=== PATIENT | female | born 1965 | race African-American/Black ===

== ENCOUNTER 2016-12-04 14:15 | Emergency (ER) | payer OTHER ==
[2016-12-04 14:34] VITALS: BP 137/91; PULSE 98; TEMP 97.8; BMI 40.2
--- NOTE | 2016-12-08 16:26 | EKG ---
Test Reason : Blood Pressure : / mmHG Vent. Rate : 100 BPM Atrial Rate : 100 BPM P-R Int : 168 ms QRS Dur : 090 ms QT Int : 336 ms P-R-T Axes : 050 -25 032 degrees QTc Int : 433 ms NORMAL SINUS RHYTHM MINIMAL VOLTAGE CRITERIA FOR LVH, MAY BE NORMAL VARIANT BORDERLINE ECG WHEN COMPARED WITH ECG OF 07-APR-2016 19:28, LIKELY NO SIGNIFICANT CHANGES WERE SEEN Confirmed by KAVON DAMICO, MIKEY ([id number]) on 12/08/2016 4:25:41 PM Referred By: Confirmed By:MIKEY JACOBSON MD
== END 2016-12-04 16:20 | disposition left against medical advice (07) ==
LOC: JER 14:15
DX: Z53.21 Procedure and treatment not carried out due to patient leaving prior to being seen by health care provider (principal)
CPT/HCPCS: 93005; 93010; 99282-25

== ENCOUNTER 2016-12-19 12:06 | Emergency (ER) | payer OTHER ==
[2016-12-19 12:10] VITALS: TEMP 98; BMI 43.0
--- NOTE | 2016-12-19 12:28 | PDOC ---
History of Present Illness - General History Source: Patient, Old Records Exam Limitations: No Limitations - History of Present Illness Initial Comments: 12/19/16 14:17 The patient is a 51 year old female, with a significant past medical history of asthma, hypertension, diabetes and anxiety/panic attacks, who presents to the emergency department with intermittent chest pain for the past couple of months but worsening today. The patient reports that she has seen her primary care provider for these symptoms. From there, she was referred to cardiology and reports a negative cardiac workup. However, her symptoms persist so she presents to the ED today for evaluation. The patient Currently in the ED, the patient is in no pain. The patient denies diaphoresis or shortness of breath. The patient denies fever, chills, cough, nausea or vomiting. The patient denies any trauma. Allergies: None reported. Past Surgical History: None reported. Social History: Non smoker. Denies alcohol or drug use. PCP: MISTY Holbrook <Vikki Anguiano - Last Filed: 12/19/16 14:17> <Ian Jean Baptiste - Last Filed: 12/19/16 15:57> - General Chief Complaint: Chest Pain Stated Complaint: CHEST PAIN Time Seen by Provider: 12/19/16 12:27 Past History <Vikki Anguiano - Last Filed: 12/19/16 14:17> - Past Medical History Asthma: Yes Cancer: No Cardiac Disorders: No CHF: No Diabetes: Yes HTN: Yes Liver Disease: No Psychiatric Problems: Yes (anxiety) Seizures: No Thyroid Disease: No - Psycho/Social/Smoking Cessation Hx Anxiety: Yes (PANIC ATTACKS) Suicidal Ideation: No Smoking Status: No Smoking History: Never smoked Have you smoked in the past 12 months: No Number of Cigarettes Smoked Daily: 0 Information on smoking cessation initiated: No Hx Alcohol Use: No Drug/Substance Use Hx: No Substance Use Type: None Hx Substance Use Treatment: No <Ian Jean Baptiste - Last Filed: 12/19/16 15:57> - Past Medical History Allergies/Adverse Reactions: Allergies Allergy/AdvReac Type Severity Reaction Status Date / Time No Known Allergies Allergy Verified 12/19/16 12:07 Home Medications: Ambulatory Orders Albuterol Sulfate [Proventil HFA Inhaler -] 1 - 2 inh PO QID 12/19/16 Aspirin [ASA -] 81 mg PO DAILY 12/19/16 Cholecalciferol (Vitamin D3) [Vitamin D3 -] 400 unit PO WEEKLY 12/19/16 Cyclobenzaprine HCl [Flexeril 10 mg] 10 mg PO BID PRN 12/19/16 Cyclobenzaprine HCl [Flexeril 10 mg] 10 mg PO TID #30 tablet 12/19/16 Ibuprofen 800 mg PO TID #30 tablet 12/19/16 Ibuprofen [Motrin -] 400 mg PO QID 12/19/16 Metformin HCl [Glucophage -] 500 mg PO DAILY 12/19/16 Oxycodone HCl/Acetaminophen [Percocet 10-325 mg Tablet] 1 each PO Q6H PRN Review of Systems - Review of Systems Able to Perform ROS?: Yes Comments:: 12/19/16 14:12 GENERAL/CONSTITUTIONAL: No fever or chills. No weakness. HEAD, EYES, EARS, NOSE AND THROAT: No change in vision. No ear pain or discharge. No sore throat. CARDIOVASCULAR: +Chest pain. No shortness of breath. RESPIRATORY: No cough, wheezing, or hemoptysis. GASTROINTESTINAL: No nausea, vomiting, diarrhea or constipation. GENITOURINARY: No dysuria, frequency, or change in urination. MUSCULOSKELETAL: No joint or muscle swelling or pain. No neck or back pain. SKIN: No rash. NEUROLOGIC: No headache, vertigo, loss of consciousness, or change in strength/ sensation. ENDOCRINE: No increased thirst. No abnormal weight change. HEMATOLOGIC/LYMPHATIC: No anemia, easy bleeding, or history of blood clots. ALLERGIC/IMMUNOLOGIC: No hives or skin allergy. <Vikki Anguiano - Last Filed: 12/19/16 14:17> *Physical Exam - Vital Signs Last Vital Signs Temp Pulse Resp BP Pulse Ox 98.0 F 90 18 148/96 100 12/19/16 12:07 12/19/16 12:07 12/19/16 12:07 12/19/16 12:07 12/19/16 12:07 - Physical Exam Comments: 12/19/16 14:07 GENERAL: Awake, alert, and fully oriented, in no acute distress. HEAD: No signs of trauma. EYES: PERRLA, EOMI, sclera anicteric, conjunctiva clear. ENT: Auricles normal inspection, hearing grossly normal, nares patent, oropharynx clear without exudates. Moist mucosa. NECK: Normal ROM, supple, no lymphadenopathy, JVD, or masses. CHEST: Reproducible chest tenderness to palpation. LUNGS: Breath sounds equal, clear to auscultation bilaterally. No wheezes, and no crackles. HEART: Regular rate and rhythm, normal S1 and S2, no murmurs, rubs or gallops. ABDOMEN: Soft, nontender, normoactive bowel sounds. No guarding, no rebound. No masses. EXTREMITIES: Normal range of motion, no edema. No clubbing or cyanosis. No cords , erythema, or tenderness. NEUROLOGICAL: Cranial nerves II through XII intact. Normal speech, normal gait. SKIN: Warm, dry, normal turgor, no rashes or lesions noted. <Vikki Anguiano - Last Filed: 12/19/16 14:17> - Vital Signs Last Vital Signs Temp Pulse Resp BP Pulse Ox 98.0 F 90 18 148/96 100 12/19/16 12:07 12/19/16 12:07 12/19/16 12:07 12/19/16 12:07 12/19/16 12:07 <Ian Jean Baptiste - Last Filed: 12/19/16 15:57> ED Treatment Course - LABORATORY CBC & Chemistry Diagram: 12/19/16 12:51 12/19/16 12:51 <Vikki Anguiano - Last Filed: 12/19/16 14:17> - LABORATORY CBC & Chemistry Diagram: 12/19/16 12:51 12/19/16 12:51 <Ian Jean Baptiste - Last Filed: 12/19/16 15:57> Medical Decision Making - Medical Decision Making 12/19/16 13:43 EXAM: RAD/CHEST PA & LAT Reviewed By: Dr. Hernesto King IMPRESSION: No evidence of active pulmonary disease. <Vikki Anguiano - Last Filed: 12/19/16 14:17> *DC/Admit/Observation/Transfer - Attestations Scribe Attestion: 12/19/16 12:28 Documentation prepared by Vikki Anguiano, acting as medical clinic manager for Ian Jean Baptiste MD/. <Vikki Anguiano - Last Filed: 12/19/16 14:17> - Discharge Dispostion Admit: No - Attestations Physician Attestion: 12/19/16 12:27 I, Dr. Ian Jean Baptiste, attest that this document has been prepared under my direction and personally reviewed by me in its entirety. I further attest, that it accurately reflects all work, treatment, procedures and medical decision -making performed by me. <Ian Jean Baptiste - Last Filed: 12/19/16 15:57> Diagnosis at time of Disposition: Chest pain, Chest wall pain - Discharge Dispostion Disposition: HOME Condition at time of disposition: Good - Prescriptions Prescriptions: Cyclobenzaprine HCl [Flexeril 10 mg] 10 mg PO TID #30 tablet Ibuprofen 800 mg PO TID #30 tablet - Referrals Referrals: Maxi Holbrook PA [Primary Care Provider] - - Patient Instructions Printed Discharge Instructions: DI for Atypical Chest Pain Additional Instructions: This is definitely chest wall tenderness and pain. You do not have a blood clot. Amilcar is probably best- Follow up with your primary care doctor. Best- Dr. Ian Jean Baptiste
[2016-12-19 13:07] LABS: BASOPHIL 0.4 % (0-2.0); EOSINOPHIL 0.7 % (0-4.5); MCH 26.4 pg (25.7-33.7); MCHC 32.2 g/dl (32.0-36.0); MEAN CELL VOLUME 82.2 fl (80-96); MEAN PLT VOLUME 8.9 fl (7.5-11.1); NEUTROPHILS 68.4 % (42.8-82.8); PLATELET COUNT 307 K/MM3 (134-434); RDW 15.9 % (11.6-15.6); WHITE BLOOD COUNT 8.3 K/mm3 (4.0-10.0)
[2016-12-19 13:27] LABS: ALBUMIN 3.3 g/dl (3.4-5.0); ANION GAP 6 (8-16); BILIRUBIN,TOTAL 0.5 mg/dL (0.2-1.0); CALCIUM 8.7 mg/dL (8.5-10.1); CO2 32 mmol/L (21-32); CREATININE 0.8 mg/dL (0.55-1.02); GLUCOSE,RANDOM 102 mg/dL (74-106); MAGNESIUM 1.9 mg/dL (1.8-2.4); SGOT/AST 13 U/L (15-37); SGPT/ALT 19 U/L (12-78)
[2016-12-19 13:29] LABS: ALK PHOS 85 U/L (45-117); TROPONIN I < 0.02 ng/ml (0.00-0.05)
[2016-12-19 15:04] LABS: INR 1.08 (0.82-1.09); PROTHROMBIN TIME (PATIENT) 11.9 SEC (9.98-11.88)
--- NOTE | 2016-12-19 15:14 | EKG ---
Test Reason : Blood Pressure : / mmHG Vent. Rate : 085 BPM Atrial Rate : 085 BPM P-R Int : 164 ms QRS Dur : 092 ms QT Int : 346 ms P-R-T Axes : 067 -20 033 degrees QTc Int : 411 ms NORMAL SINUS RHYTHM NON-SPECIFIC INTRA-VENTRICULAR CONDUCTION DELAY WHEN COMPARED WITH ECG OF 04-DEC-2016 14:24, NO SIGNIFICANT CHANGE WAS FOUND Confirmed by ELMA EDWARDS MD ([id number]) on 12/19/2016 3:14:03 PM Referred By: Confirmed By:ELMA EDWARDS MD
[2016-12-19 16:30] VITALS: BP 131/89; PULSE 80
== END 2016-12-19 16:31 | disposition home or self-care (01) ==
LOC: JER 12:06
DX: R07.89 Other chest pain (principal); I10 Essential (primary) hypertension; E11.9 Type 2 diabetes mellitus without complications; Z79.84 Long term (current) use of oral hypoglycemic drugs; J45.909 Unspecified asthma, uncomplicated; F41.0 Panic disorder [episodic paroxysmal anxiety]
CPT/HCPCS: 36415; 71020-TC; 80053; 82550; 83735; 84484; 85025; 85379; 85610; 93005; 93010; 99282-25

== ENCOUNTER 2017-06-09 17:40 | Emergency (ER) | payer OTHER ==
[2017-06-09 17:46] VITALS: BP 159/83; PULSE 106; TEMP 98.1; BMI 38.9
--- NOTE | 2017-06-09 19:51 | PDOC ---
History of Present Illness - History of Present Illness Initial Comments: 06/09/17 20:01 The patient is a 51 year old female, with a significant past medical history of asthma, hypertension, diabetes and anxiety/panic attacks, who presents to the emergency department with non radiating left sided chest pain with reproducible tenderness since 3PM today. The patient states she experiences this pain often and has been seen in the ED for similar complaint which was diagnosed as chest wall pain. The last time she had this pain was at 2pm today. The patient denies alleviating or aggravating factors to her chest pain, and describes the pain as intermittent and tight. The patient resports this pain is identical to her previous chest pain and just wants to know if her EKG is normal so that she can leave. She had a normal stress test by report a few months ago by Dr. Mgcowan. Denies trauma or recent heavy lifting. She denies shortness of breath, headache and dizziness. She denies fever, chills , nausea, vomit, diarrhea and constipation. She denies dysuria, frequency, urgency and hematuria. Allergies: NKDA Social history: Pt denies toxic habits [employer]ane Crew Supervisor: Dr. Mcgowan <Love Hanson - Last Filed: 06/09/17 22:26> <Yvette Amaral - Last Filed: 06/10/17 17:30> - General Chief Complaint: Chest Pain Stated Complaint: CHEST PAIN Time Seen by Provider: 06/09/17 19:49 Past History <Love Hanson - Last Filed: 06/09/17 22:26> - Past Medical History Asthma: Yes Cancer: No Cardiac Disorders: No CHF: No Diabetes: Yes HTN: Yes Liver Disease: No Psychiatric Problems: Yes (anxiety) Seizures: No Thyroid Disease: No - Psycho/Social/Smoking Cessation Hx Anxiety: Yes (PANIC ATTACKS) Suicidal Ideation: No Smoking Status: No Smoking History: Never smoked Have you smoked in the past 12 months: No Number of Cigarettes Smoked Daily: 0 Information on smoking cessation initiated: No Hx Alcohol Use: No Drug/Substance Use Hx: No Substance Use Type: None Hx Substance Use Treatment: No <Yvette Amaral - Last Filed: 06/10/17 17:30> - Past Medical History Allergies/Adverse Reactions: Allergies Allergy/AdvReac Type Severity Reaction Status Date / Time No Known Allergies Allergy Verified 06/09/17 17:42 Home Medications: Ambulatory Orders Albuterol Sulfate [Proventil HFA Inhaler -] 1 - 2 inh PO QID 12/19/16 Aspirin [ASA -] 81 mg PO DAILY 12/19/16 Cholecalciferol (Vitamin D3) [Vitamin D3 -] 400 unit PO WEEKLY 12/19/16 Cyclobenzaprine HCl [Flexeril 10 mg] 10 mg PO BID PRN 12/19/16 Cyclobenzaprine HCl [Flexeril 10 mg] 10 mg PO TID #30 tablet 12/19/16 Ibuprofen 800 mg PO TID #30 tablet 12/19/16 Ibuprofen [Motrin -] 400 mg PO QID 12/19/16 Metformin HCl [Glucophage -] 500 mg PO DAILY 12/19/16 Oxycodone HCl/Acetaminophen [Percocet 10-325 mg Tablet] 1 each PO Q6H PRN Review of Systems - Review of Systems Able to Perform ROS?: Yes Comments:: 06/09/17 20:01 GENERAL/CONSTITUTIONAL: No fever or chills. No weakness. HEAD, EYES, EARS, NOSE AND THROAT: No change in vision. No ear pain or discharge. No sore throat. CARDIOVASCULAR: (+) left sided chest pain, No shortness of breath. RESPIRATORY: No cough, wheezing, or hemoptysis. GASTROINTESTINAL: No nausea, vomiting, diarrhea or constipation. GENITOURINARY: No dysuria, frequency, or change in urination. MUSCULOSKELETAL: No joint or muscle swelling or pain. No neck or back pain. SKIN: No rash NEUROLOGIC: No headache, vertigo, loss of consciousness, or change in strength/ sensation. ENDOCRINE: No increased thirst. No abnormal weight change. HEMATOLOGIC/LYMPHATIC: No anemia, easy bleeding, or history of blood clots. ALLERGIC/IMMUNOLOGIC: No hives or skin allergy. <Love Hanson - Last Filed: 06/09/17 22:26> *Physical Exam - Vital Signs Last Vital Signs Temp Pulse Resp BP Pulse Ox 98.1 F 106 H 18 159/83 100 06/09/17 17:43 06/09/17 17:43 06/09/17 17:43 06/09/17 17:43 06/09/17 17:43 - Physical Exam Comments: 06/09/17 20:02 GENERAL: Awake, alert, and fully oriented, in no acute distress HEAD: No signs of trauma EYES: PERRLA, EOMI, sclera anicteric, conjunctiva clear ENT: Auricles normal inspection, hearing grossly normal, nares patent, oropharynx clear without exudates. Moist mucosa NECK: Normal ROM, supple, no lymphadenopathy, JVD, or masses LUNGS: Breath sounds equal, clear to auscultation bilaterally. No wheezes, and no crackles HEART Regular rate and rhythm, normal S1 and S2, no murmurs, rubs or gallops ABDOMEN: Soft, nontender, normoactive bowel sounds. No guarding, no rebound. No masses MUSCULOSKELETAL: (+) reproducible tenderness to palpation to the left anterior chest wall EXTREMITIES: Normal range of motion, no edema. No clubbing or cyanosis. No cords, erythema, or tenderness NEUROLOGICAL: Normal speech, cranial nerves intact, negative pronator drift, 5/ 5 strength in all 4 extremities, normal sensation to light touch in all 4 extremities, normal cerebellar exam, normal gait, normal reflexes and tone SKIN: Warm, Dry, normal turgor, no rashes or lesions noted. <Love Hanson - Last Filed: 06/09/17 22:26> - Vital Signs Last Vital Signs Temp Pulse Resp BP Pulse Ox 98.1 F 106 H 18 159/83 100 06/09/17 17:43 06/09/17 17:43 06/09/17 17:43 06/09/17 17:43 06/09/17 17:43 <Yvette Amaral - Last Filed: 06/10/17 17:30> Medical Decision Making - Medical Decision Making 06/09/17 20:08 52-year-old female with a history of hypertension, [id number] diabetes, and recurrent chest pain presents with chest pain. Patient self reports that the pain is reproducible when she touches however denies any trauma or recent heavy lifting. She has not tried any treatments for this pain. Exam and EKG are unremarkable. Likely costochondritis but given risk factors for ACS, I will check a troponin. -labs -cxr -reassess Twelve-lead EKG was performed and reviewed by me: Sinus tachycardia, rate of 102 , normal axis and intervals, no ST elevations or T-wave inversions. 06/09/17 20:13 The nurse informs me that the patient would like to leave. When I speak with the pt, she reports that she came to the emergency department just to make sure that her EKG was normal. I urged the patient to stay so that we can fully evaluate her, including to check a troponin to evaluate for ACS. I asked the nurse to draw her labs now so that we can have her troponin MICK. 06/09/17 21:41 I am informed that Ms. Sky eloped from the ED. I called her number at multiple times to try to reach her to come back for an evaluation but the call went to voicemail. <Yvette Amaral - Last Filed: 06/10/17 17:30> *DC/Admit/Observation/Transfer - Attestations Scribe Attestion: 06/09/17 20:02 Documentation prepared by Love Hanson, acting as medical van driver for Yvette Amaral MD, <Love Hanson - Last Filed: 06/09/17 22:26> <Yvette Amaral - Last Filed: 06/10/17 17:30> Diagnosis at time of Disposition: Eloped - Discharge Dispostion Disposition: ELP
== END 2017-06-09 20:47 | disposition left against medical advice (07) ==
LOC: JER 17:40
DX: R07.89 Other chest pain (principal); I10 Essential (primary) hypertension; E11.9 Type 2 diabetes mellitus without complications; Z79.84 Long term (current) use of oral hypoglycemic drugs; Z86.59 Personal history of other mental and behavioral disorders
CPT/HCPCS: 99281-25

== ENCOUNTER 2017-06-10 18:30 | Emergency (ER) | payer OTHER ==
[2017-06-10 18:43] VITALS: BP 149/77; PULSE 99; TEMP 98.2; BMI 39.3
--- NOTE | 2017-06-10 20:38 | PDOC ---
History of Present Illness - General History Source: Patient Exam Limitations: No Limitations <Duy Maguire - Last Filed: 06/11/17 01:45> <Sandoval Booth - Last Filed: 06/11/17 02:14> - General Chief Complaint: Chest Pain Stated Complaint: CHEST PAIN Time Seen by Provider: 06/10/17 20:38 - History of Present Illness Initial Comments: 06/10/17 22:04 The patient is a 52 year old female, with a significant past medical history of hypertension, prediabetes, asthma, and anxiety, who presents to the emergency department complaining of chest pain for over one year. The patient reports the pain is intermittent and describes it as a pressure. Patient reports her pain occasionally radiates down her left arm and into her left upper back. Patient reports the pain is exacerbated with movement or with applied pressure to the left chest wall. Patient reports she has been taken 800 mg of tylenol for the pain with no relief. She denies any associated shortness of breath, diaphoresis , palpitations, or lower extremity edema. Patient reports her chest pain is alleviated with a toradol injection. Patient states she has seen her travel pt Dr. Powers, who has done an ECHO and a stress test, which were negative. Patient states the providers she has seen associate her pain to chest wall pain or enlarged breasts. Patient denies any fever or chills. She denies any abdominal pain, nausea, vomiting, diarrhea, or constipation. She denies any recent travel or sick contacts. Allergies: NKDA Past Surgical History: None reported. Social History: Non smoker. No ETOH or drug use. Physician: Dr. Mcgowan (Duy Maguire) Past History <Duy Maguire - Last Filed: 06/11/17 01:45> - Past Medical History Asthma: Yes Cancer: No Cardiac Disorders: No CHF: No Diabetes: Yes HTN: Yes Liver Disease: No Psychiatric Problems: Yes (anxiety) Seizures: No Thyroid Disease: No - Psycho/Social/Smoking Cessation Hx Anxiety: No Suicidal Ideation: No Smoking Status: No Smoking History: Never smoked Have you smoked in the past 12 months: No Number of Cigarettes Smoked Daily: 0 Hx Alcohol Use: No Drug/Substance Use Hx: No Substance Use Type: None Hx Substance Use Treatment: No <Sandoval Booth - Last Filed: 06/11/17 02:14> - Past Medical History Allergies/Adverse Reactions: Allergies Allergy/AdvReac Type Severity Reaction Status Date / Time No Known Allergies Allergy Verified 06/10/17 18:43 Home Medications: Ambulatory Orders Albuterol Sulfate [Proventil HFA Inhaler -] 1 - 2 inh PO QID 12/19/16 Aspirin [ASA -] 81 mg PO DAILY 12/19/16 Cholecalciferol (Vitamin D3) [Vitamin D3 -] 400 unit PO WEEKLY 12/19/16 Cyclobenzaprine HCl [Flexeril 10 mg] 10 mg PO BID PRN 12/19/16 Ibuprofen 800 mg PO TID #30 tablet 12/19/16 Ibuprofen [Motrin -] 400 mg PO QID 12/19/16 Metformin HCl [Glucophage -] 500 mg PO DAILY 12/19/16 Oxycodone HCl/Acetaminophen [Percocet 10-325 mg Tablet] 1 each PO Q6H PRN Review of Systems - Review of Systems Able to Perform ROS?: Yes <Duy Maguire - Last Filed: 06/11/17 01:45> <Sandoval Booth - Last Filed: 06/11/17 02:14> - Review of Systems Comments:: 06/10/17 22:06 CONSTITUTIONAL: No fever, no chills, no fatigue EYES: No visual changes ENT: No ear pain, no sore throat CARDIOVASCULAR: Yes: +chest pain. No diaphoresis, no palpitations RESPIRATORY: No cough, no SOB GI: No abdominal pain, no nausea, no vomiting, no constipation, no diarrhea GENITOURINARY: No dysuria, no frequency, no hematuria MUSKULOSKELETAL: No back pain, no joint pain, no myalgias SKIN: No rash NEURO: No headache (Duy Maguire) *Physical Exam <Duy Maguire - Last Filed: 06/11/17 01:45> <Sandoval Booth - Last Filed: 06/11/17 02:14> - Vital Signs Last Vital Signs Temp Pulse Resp BP Pulse Ox 98.2 F 99 H 20 149/77 100 06/10/17 18:37 06/10/17 18:37 06/10/17 18:37 06/10/17 18:37 06/10/17 20:25 - Physical Exam Comments: 06/10/17 22:06 CONSTITUTIONAL: Well-appearing; well-nourished; in no apparent distress HEAD: Normocephalic; atraumatic EYES: PERRL; EOM intact ENMT: External appears normal; normal oropharynx NECK: Supple; non-tender; no cervical lymphadenopathy CARD: Tenderness to palpation of the chest wall. Normal S1, S2; no murmurs, rubs , or gallops RESP: Normal chest excursion with respiration; breath sounds clear and equal bilaterally; no wheezes, rhonchi, or rales ABD: Soft, non-distended; non-tender; no palpable organomegaly, no palpable hernias EXT: Normal ROM in all four extremities; non-tender to palpation; distal pulses intact SKIN: Warm, dry, no rash NEURO: No focal neurological deficiencies. (Duy Maguire) Heart Score/ECG Review <Duy Maguire - Last Filed: 06/11/17 01:45> - History History: Slightly suspicious - Electrocardiogram EKG: Normal - Age Age: 45-65 - Risk Factors Risk Factors Heart Score: Yes Hx Hypercholesterolemia, Yes Hx Hypertension Based on the list above the patient has:: 1-2 risk factors - Troponin Troponin: </= normal limit - Score Heart Score - Total: 2 <Sandoval Booth - Last Filed: 06/11/17 02:14> - ECG Intrepretation Comment:: 06/10/17 22:06 Vent Rate: 85 bpm IMPRESSION: Normal sinus rhythm. No ECG changes noted from ECG on 12/19/16. (Duy Maguire) ED Treatment Course - LABORATORY CBC & Chemistry Diagram: 06/10/17 22:16 06/10/17 22:16 <Duy Maguire - Last Filed: 06/11/17 01:45> - LABORATORY CBC & Chemistry Diagram: 06/10/17 22:16 06/10/17 22:16 <Sandoval Booth - Last Filed: 06/11/17 02:14> - ADDITIONAL ORDERS Additional order review: Laboratory Results 06/10/17 06/10/17 22:16 22:16 INR 1.04 D-Dimer > 1249 H Sodium 140 Potassium 4.7 Chloride 103 Carbon Dioxide 28 Anion Gap 9 BUN 13 Creatinine 0.8 Creat Clearance w eGFR > 60 Random Glucose 101 Calcium 9.0 Total Bilirubin 0.3 D AST 18 D ALT 22 Alkaline Phosphatase 80 Creatine Kinase 133 Troponin I < 0.02 Total Protein 7.1 Albumin 3.5 06/10/17 22:16 RBC 4.24 MCV 80.4 MCHC 32.3 RDW 15.9 H MPV 9.4 Neutrophils % 66.2 Lymphocytes % 23.7 Monocytes % 7.0 Eosinophils % 2.5 D Basophils % 0.6 - RADIOLOGY Radiology Studies Ordered: Category Date Time Status CHEST CTA [CT] Stat CT Scan 06/11/17 00:12 Taken CHEST PA & LAT [RAD] Stat Radiology 06/10/17 21:53 Completed Radiograph Interpretation: 06/11/17 01:45 EXAM: CTA Chest INTERPRETED BY: Dr. Johnson REVIEWED BY: Dr. Booth IMPRESSION: No definite PE, but lower lobe subsegmental artery evaluation limited by motion artifact. No aortic dissection or aneurysm. No pneumonia or pleural effusions (Duy Maguire) - Medications Given in the ED: ED Medications Discontinued Medications Generic Name Dose Route Start Last Admin Trade Name Freq PRN Reason Stop Dose Admin Ketorolac Tromethamine 30 mg 06/10/17 21:53 06/10/17 22:18 Toradol Injection - IVPUSH 06/10/17 21:54 30 mg ONCE ONE Administration Tramadol HCl 50 mg 06/11/17 00:14 06/11/17 01:14 Ultram - PO 06/11/17 00:15 50 mg ONCE ONE Administration Medical Decision Making <Duy Maguire - Last Filed: 06/11/17 01:45> <Sandoval Booth - Last Filed: 06/11/17 02:14> - Medical Decision Making 06/10/17 23:39 First call placed to Dr. Powers at 13:40. Case discussed at this time. (Duy Maguire) 06/11/17 01:53 Patient is a morbidly obese 52-year-old female with history of hypertension, prediabetes and aspirin the ER with recurrent atraumatic, pleuritic left-sided chest pain. Patient's had an extensive cardiac workup which included stress testing for similar symptoms which were negative for coronary artery disease. In the ER, patient is awake and alert, hemodynamically stable. EKG shows no evidence of acute ischemia and is unchanged from previous. Chest x-ray reveals no evidence of cardiomegaly/infiltrate or effusion. CT of chest obtained after a significantly elevated d-dimer shows no evidence of acute PE. Will obtain second set of cardiac enzymes and if negative, will discharge with outpatient follow-up. 06/11/17 02:13 CTA of chest shows no evidence of acute PE. There is motion artifact noted which is limiting the evaluation of lower lobe subsegmental arteries but considering the patient's duration of symptoms of more than year and oxygen saturation of 99% on room air I doubt presence of subsegmental PE at this time. Patient remains pain-free at this time. Patient's heart score is noted to be 2- 3 . Will obtain second set of cardiac enzymes and if negative will discharge with cardiiology follow-up. (Sandoval Booth) *DC/Admit/Observation/Transfer <Duy Maguire - Last Filed: 06/11/17 01:45> <Sandoval Booth - Last Filed: 06/11/17 02:14> - Attestations Physician Attestion: 06/11/17 01:53 The documentation was prepared by the scribe under my direct supervision. I have reviewed the documentation which correctly represents the findings, medical decision-making and critical action taken by me. (Sandoval Booth)
[2017-06-10] MEDS ORDERED: KETOROLAC TROMETHAMINE 30 MG/1 ML VIAL IVPUSH ONE (21:53)
[2017-06-10] MEDS ORDERED: KETOROLAC TROMETHAMINE 30 MG/1 ML VIAL ONE (22:18)
[2017-06-10 22:31] LABS: BASOPHIL 0.6 % (0-2.0); EOSINOPHIL 2.5 % (0-4.5); MCH 25.9 pg (25.7-33.7); MCHC 32.3 g/dl (32.0-36.0); MEAN CELL VOLUME 80.4 fl (80-96); MEAN PLT VOLUME 9.4 fl (7.5-11.1); NEUTROPHILS 66.2 % (42.8-82.8); PLATELET COUNT 303 K/MM3 (134-434); RDW 15.9 % (11.6-15.6); WHITE BLOOD COUNT 6.4 K/mm3 (4.0-10.0)
[2017-06-10 22:44] LABS: INR 1.04 (0.82-1.09)
[2017-06-10 22:52] LABS: D-DIMER > 1249 ng/ml (<200-235)
[2017-06-10 23:49] LABS: ALBUMIN 3.5 g/dl (3.4-5.0); ANION GAP 9 (8-16); BILIRUBIN,TOTAL 0.3 mg/dL (0.2-1.0); CO2 28 mmol/L (21-32); CPK 133 IU/L (26-192); CREATININE 0.8 mg/dL (0.55-1.02); GLUCOSE,RANDOM 101 mg/dL (74-106); SGOT/AST 18 U/L (15-37); SGPT/ALT 22 U/L (12-78); TOT PROT 7.1 g/dl (6.4-8.2)
[2017-06-10 23:51] LABS: ALK PHOS 80 U/L (45-117); TROPONIN I < 0.02 ng/ml (0.00-0.05)
[2017-06-11] MEDS ORDERED: traMADol HCL 50 MG TABLET PO ONE (00:14)
[2017-06-11] MEDS ORDERED: traMADol HCL 50 MG TABLET ONE ×2 (00:34→01:10)
[2017-06-11 05:43] LABS: CPK 121 IU/L (26-192); TROPONIN I < 0.02 ng/ml (0.00-0.05)
--- NOTE | 2017-06-11 06:25 | PDOC ---
*Physical Exam - Vital Signs Last Vital Signs Temp Pulse Resp BP Pulse Ox 98.2 F 99 H 20 149/77 100 06/10/17 18:37 06/10/17 18:37 06/10/17 18:37 06/10/17 18:37 06/10/17 20:25 ED Treatment Course - LABORATORY CBC & Chemistry Diagram: 06/10/17 22:16 06/10/17 22:16 - ADDITIONAL ORDERS Additional order review: Laboratory Results 06/11/17 06/10/17 06/10/17 04:45 22:16 22:16 INR 1.04 D-Dimer > 1249 H Sodium 140 Potassium 4.7 Chloride 103 Carbon Dioxide 28 Anion Gap 9 BUN 13 Creatinine 0.8 Creat Clearance w eGFR > 60 Random Glucose 101 Calcium 9.0 Total Bilirubin 0.3 D AST 18 D ALT 22 Alkaline Phosphatase 80 Creatine Kinase 121 133 Troponin I < 0.02 < 0.02 Total Protein 7.1 Albumin 3.5 06/10/17 22:16 RBC 4.24 MCV 80.4 MCHC 32.3 RDW 15.9 H MPV 9.4 Neutrophils % 66.2 Lymphocytes % 23.7 Monocytes % 7.0 Eosinophils % 2.5 D Basophils % 0.6 - Medications Given in the ED: ED Medications Discontinued Medications Generic Name Dose Route Start Last Admin Trade Name Ashly PRN Reason Stop Dose Admin Ketorolac Tromethamine 30 mg 06/10/17 21:53 06/10/17 22:18 Toradol Injection - IVPUSH 06/10/17 21:54 30 mg ONCE ONE Administration Tramadol HCl 50 mg 06/11/17 00:14 06/11/17 01:14 Ultram - PO 06/11/17 00:15 50 mg ONCE ONE Administration *DC/Admit/Observation/Transfer Diagnosis at time of Disposition: Chest pain - Discharge Dispostion Disposition: HOME Condition at time of disposition: Improved Admit: No - Referrals - Patient Instructions Printed Discharge Instructions: DI for Atypical Chest Pain, DI for Chest Pain - Post Discharge Activity
--- NOTE | 2017-06-11 16:18 | EKG ---
Test Reason : Blood Pressure : / mmHG Vent. Rate : 102 BPM Atrial Rate : 102 BPM P-R Int : 176 ms QRS Dur : 100 ms QT Int : 334 ms P-R-T Axes : 060 -26 049 degrees QTc Int : 435 ms SINUS TACHYCARDIA OTHERWISE NORMAL ECG WHEN COMPARED WITH ECG OF 09-JUN-2017 17:52, NO SIGNIFICANT CHANGE WAS FOUND Confirmed by RONEL BERNABE MD ([id number]) on 06/11/2017 4:18:37 PM Referred By: Confirmed By:RONEL BERNABE MD
--- NOTE | 2017-06-11 16:19 | EKG ---
Test Reason : Blood Pressure : / mmHG Vent. Rate : 102 BPM Atrial Rate : 102 BPM P-R Int : 166 ms QRS Dur : 094 ms QT Int : 332 ms P-R-T Axes : 065 -21 036 degrees QTc Int : 432 ms SINUS TACHYCARDIA SEPTAL INFARCT , AGE UNDETERMINED ABNORMAL ECG WHEN COMPARED WITH ECG OF 19-DEC-2016 12:22, NO SIGNIFICANT CHANGE WAS FOUND Confirmed by RONEL BERNABE MD ([id number]) on 06/11/2017 4:19:10 PM Referred By: Confirmed By:RONEL BERNABE MD
== END 2017-06-11 06:31 | disposition home or self-care (01) ==
LOC: JER 18:30
PROC: 3E0333Z Introduction of Anti-inflammatory into Peripheral Vein, Percutaneous Approach (ICD-10-PCS; principal; 2017-06-10)
DX: R07.89 Other chest pain (principal); I10 Essential (primary) hypertension; E11.9 Type 2 diabetes mellitus without complications; F41.9 Anxiety disorder, unspecified; J45.909 Unspecified asthma, uncomplicated
CPT/HCPCS: 36415; 71020-TC; 71275-TC; 80053; 84484; 85025; 85379; 85610; 93005; 93010; 96374; 99284-25

== ENCOUNTER 2018-12-16 10:56 | Emergency (ER) | payer OTHER ==
[2018-12-16 11:07] VITALS: BMI 39.3
[2018-12-16] MEDS ORDERED: KETOROLAC TROMETHAMINE 15 MG/ML VIAL IVPUSH ONE (11:56)
--- NOTE | 2018-12-16 11:56 | PDOC ---
History of Present Illness - General Chief Complaint: Chest Pain Stated Complaint: CHEST PAIN Time Seen by Provider: 12/16/18 11:42 History Source: Patient Exam Limitations: No Limitations - History of Present Illness Initial Comments: 12/16/18 12:18 The patient is a 53 year old female, with a significant past medical history of hypertension, diabetes, asthma, arthritis and anxiety, who presents to the emergency department complaining of left sided chest pain x 2 days. Described as sharp and stabbing on left side of chest, occasional numbness/tingling to left upper arm, currently none. No alleviating or exacerbating factors. Nonexertional. No trauma or strenuous activities. Chest pain has been chronic x long time, with usually reproducible symptoms. Patient states she has seen her inspector fibrous wallboard Dr. Powers/[place], who has done an ECHO and a stress test, which were negative - last visit several months ago. Patient states the providers she has associated her pain to chest wall pain or enlarged breasts. Patient denies any fever or chills. She denies any associated shortness of breath, diaphoresis, palpitations, or lower extremity edema. Patient reports her chest pain is alleviated with a toradol injection. She denies any abdominal pain, nausea, vomiting, diarrhea, or constipation. She denies any recent travel or long car ride/prolonged immobilization or sick contacts. no cough or congestion or recent respiratory sx. no suspicious food intake. Allergies: NKDA past medical history of hypertension, diabetes, asthma, arthritis and anxiety Past Surgical History: None reported. Social History: Non smoker. No ETOH or drug use. 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 No weakness. HEENT: no headache or dizziness. No congestion. No visual/hearing disturbances. CVS: +chest pain. No palp, no syncope. Resp: no sob. No cough. Gastrointestinal: no abdominal pain, nausea or vomiting. Genitourinary: no urinary sx, hematuria. MUSCULOSKELETAL: No joint pain and swelling. No neck or back pain. SKIN: no redness or skin changes, no discharge, no rash. No wounds. Hematologic: no easy bruising/bleeding. NEUROLOGIC: No headache, dizziness, LOC or altered mental status. No weakness, numbness or tingling. Allergic/Immunologic: no allergies All other systems reviewed and negative, or as documented in HPI. PE: General: Well appearing, awake and alert, NAD. obese HEENT: NCAT, PERRL, EOMI, clear conjunctiva, anicteric, moist mucus membranes, clear oropharynx, no oral lesions.. Neck: neck supple, FROM Resp: CTAB, normal and even respirations, no respiratory distress Chest: left anterior chest wall with reproducible tenderness CVS: RRR, no murmurs, 2+ peripheral pulses throughout, no peripheral edema Abdomen: soft, NTND, no peritoneal signs. +obese. Back: nontender, normal inspection and ROM MSK: no edema, SAMUEL x4, ROM intact. No clubbing or cyanosis. normal bulk and tone. Extremities: no calf tenderness Neuro: alert, oriented appropriately; no focal neurologic deficits Skin: warm and well perfused, cap refill <2 sec, normal color Past History - Past Medical History Allergies/Adverse Reactions: Allergies Allergy/AdvReac Type Severity Reaction Status Date / Time No Known Allergies Allergy Verified 06/10/17 18:43 Home Medications: Ambulatory Orders Albuterol Sulfate [Proventil HFA Inhaler -] 1 - 2 inh PO QID PRN 12/19/16 Aspirin [ASA -] 81 mg PO DAILY 12/19/16 Ibuprofen 800 mg PO TID #30 tablet 12/19/16 Oxycodone HCl/Acetaminophen [Percocet 10-325 mg Tablet] 1 each PO Q6H PRN metFORMIN HCL [Glucophage -] 500 mg PO DAILY 12/19/16 Ketorolac Tromethamine [Toradol] 10 mg PO Q6H PRN #20 tablet 12/16/18 Asthma: Yes Cancer: No Cardiac Disorders: No COPD: No CHF: No Diabetes: Yes HTN: Yes Hypercholesterolemia: Yes Liver Disease: No Psychiatric Problems: Yes (anxiety) Seizures: No Thyroid Disease: No - Suicide/Smoking/Psychosocial Hx Smoking Status: No Smoking History: Never smoked Have you smoked in the past 12 months: No Number of Cigarettes Smoked Daily: 0 Hx Alcohol Use: No Drug/Substance Use Hx: No Substance Use Type: None Hx Substance Use Treatment: No *Physical Exam - Vital Signs Last Vital Signs Temp Pulse Resp BP Pulse Ox 97.9 F 81 18 140/96 100 12/16/18 11:05 12/16/18 11:05 12/16/18 11:05 12/16/18 11:05 12/16/18 11:05 Heart Score/ECG Review - History History: Slightly suspicious - Electrocardiogram EKG: Normal - Age Age: 45-65 - Risk Factors Risk Factors Heart Score: Yes Hx Hypertension, Yes Hx Diabetes, Yes Hx Obesity Based on the list above the patient has:: >/=3 risk factors or Hx atherosclerotic disease - Troponin Troponin: </= normal limit - Score Heart Score - Total: 3 #1 ECG reviewed & interpreted by me at: 11:20 General ECG Interpretation: Sinus Rhythm Compared to previous ECG there are: No significant change 12/16/18 12:21 EKG normal sinus rhythm at 82 bpm, no interval abnormalities, narrow QRS, ST and T wave segments and morphology normal. Moderate Sedation - Procedure Monitoring Vital Signs: Procedure Monitoring Vital Signs Temperature 97.9 F 12/16/18 11:05 Pulse Rate 81 12/16/18 11:05 Respiratory Rate 18 12/16/18 11:05 Blood Pressure 140/96 12/16/18 11:05 O2 Sat by Pulse Oximetry (%) 100 12/16/18 11:05 ED Treatment Course - LABORATORY CBC & Chemistry Diagram: 12/16/18 11:55 12/16/18 11:42 - ADDITIONAL ORDERS Additional order review: Laboratory Results 12/16/18 12/16/18 11:55 11:42 Sodium 140 Potassium 4.0 Chloride 107 Carbon Dioxide 26 Anion Gap 7 L BUN 11 Creatinine 0.8 Creat Clearance w eGFR > 60 Random Glucose 93 Calcium 9.1 Magnesium 1.9 Total Bilirubin 0.6 AST 21 ALT 33 Alkaline Phosphatase 90 Troponin I Cancelled < 0.02 B-Natriuretic Peptide Cancelled 75.5 Total Protein 7.5 Albumin 3.5 12/16/18 11:55 RBC 4.72 MCV 84.1 MCHC 33.6 RDW 14.6 MPV 9.3 Neutrophils % 66.1 Lymphocytes % 24.5 Monocytes % 6.8 Eosinophils % 2.2 Basophils % 0.4 - RADIOLOGY Radiology Studies Ordered: Category Date Time Status CHEST PA & LAT [RAD] Stat Radiology 12/16/18 11:42 Taken - Medications Given in the ED: ED Medications Discontinued Medications Generic Name Dose Route Start Last Admin Trade Name Freq PRN Reason Stop Dose Admin Ketorolac Tromethamine 15 mg 12/16/18 11:56 12/16/18 11:59 Toradol Injection - IVPUSH 12/16/18 11:57 15 mg ONCE ONE Administration Medical Decision Making - Medical Decision Making 12/16/18 12:18 See HPI for details Vital signs reviewed, wnl. no tachycardia or hypoxia or respiratory sx. DDx chest pain: ACS, coronary vasospasm, NSTEMI, arrhythmia, unstable angina, PE , dissection, PUD, esophageal spasm, GERD, gastritis, costochondritis, pneumonia , pleurisy, pericarditis/myocarditis. dehydration, electrolyte/metabolic derangements. doubt PE or dissection based off of story. Prior notes reviewed, including admissions, discharges and consultations. laboratory results and imaging reviewed, basic labs and lytes wnl, CXR_no acute pathology, normal cardiac silhouette, no edema or effusion or consolidation. Cardiac panel_neg trop, bnp negative so unlikely cardiomyopathy. EKG normal sinus rhythm at 82 bpm, no interval abnormalities, narrow QRS, ST and T wave segments and morphology normal. Heart score 3, low risk for MACE at 6 weeks, <1.7% based off clinical suspicion (low) and comorbidities. ED course: -No evidence of ACS, pericarditis, myocarditis, pulmonary embolism, pneumothorax , pneumonia, Zoster, or esophageal perforation. Historically not abrupt in onset , tearing or ripping, pulses symmetric, no evidence of aortic dissection. most likely costochondritis, with reproducible chest wall tenderness has had workup with outpatient inspector fibrous wallboard, neg stress test and echo -given toradol for pain, relieved. no acute distress and remains well appearing. otc analgesia meds such as NSAIDS/tylenol as needed, rx toradol which seems to work for her pain - dietary and lifestyle modifications advised - with obesity/dm and htn. off ASA currently per her physicians. Dispo: Pt informed of my clinical impression, treatment recommendations and disposition plan. All questions answered to patient's satisfaction and expressed understanding and comfort with this. Reasons for returning to the ED sooner discussed with the patient otherwise, follow up with primary care physician and inspector fibrous wallboard for clinical reeval. At the time of discharge, the patient is alert, clinically improved, tolerating po and verbalizes understanding of instructions. Patient does not suffer from an acute life- threatening medical condition at this time she is safe for outpatient follow- up. 12/16/18 14:07 12/16/18 14:08 12/16/18 14:09 *DC/Admit/Observation/Transfer Diagnosis at time of Disposition: Chest pain Qualifiers: Chest pain type: unspecified Qualified Code(s): R07.9 - Chest pain, unspecified - Discharge Dispostion Disposition: HOME Condition at time of disposition: Improved Decision to Admit order: No - Prescriptions Prescriptions: Ketorolac Tromethamine [Toradol] 10 mg PO Q6H PRN #20 tablet PRN Reason: Pain Level 4 - 6 - Referrals Referrals: Alireza Mcgowan MD [Staff Physician] - Slade Powers MD [Staff Physician] - [facility] [Provider Group] [facility] [Provider Group] - Patient Instructions Printed Discharge Instructions: DI for Atypical Chest Pain, DI for Chest Pain Additional Instructions: 1) Please follow-up with your primary care doctor in the next 1-2 days. please call your inspector fibrous wallboard as well for followup. Please call tomorrow for an appointment. If you cannot follow-up with your primary care doctor please return to the ED for any urgent issues. 2) You were given a copy of the tests performed today. Please bring the results with you and review them with your primary care doctor. Your laboratory / imaging results were normal, including your cardiac enzyme. 3) If you have any worsening of symptoms or any other concerns please return to the ED immediately. Return if worsening symptoms including fevers, headache, vomiting, visual or hearing disturbances, abdominal pain, chest pain, shortness of breath, syncope, dehydration, inability to take things by mouth/vomiting, altered mental status, or worsening concerning symptoms. 4) Please continue taking your home medications as directed. weight loss and diet modifications advised.. your medications on discharge include over the counter tylenol and anti inflammatory such as ibuprofen, naproxen, toradol. side effects may include upset stomach, abdominal pain, vomiting, or diarrhea. do not drink alcohol with your medications. take medications with food. - Post Discharge Activity
[2018-12-16] MEDS ORDERED: KETOROLAC TROMETHAMINE 15 MG/ML VIAL ONE (11:57)
[2018-12-16 12:07] LABS: BASO % 0.4 % (0-2.0); EOS % 2.2 % (0-4.5); HEMATOCRIT 39.7 % (32.4-45.2); HEMOGLOBIN 13.3 GM/dL (10.7-15.3); LYMPH % 24.5 % (8-40); MCH 28.2 pg (25.7-33.7); MCHC 33.6 g/dl (32.0-36.0); MEAN CELL VOLUME 84.1 fl (80-96); MEAN PLT VOLUME 9.3 fl (7.5-11.1); MONO % 6.8 % (3.8-10.2); NEUT % 66.1 % (42.8-82.8); PLATELET COUNT 299 K/MM3 (134-434); RBC 4.72 M/mm3 (3.60-5.2); RDW 14.6 % (11.6-15.6); WHITE BLOOD COUNT 6.3 K/mm3 (4.0-10.0)
[2018-12-16 12:32] LABS: ALBUMIN 3.5 g/dl (3.4-5.0); ALK PHOS 90 U/L (45-117); ANION GAP 7 MMOL/L (8-16); BILIRUBIN,TOTAL 0.6 mg/dL (0.2-1); BLOOD UREA NITROGEN 11 mg/dL (7-18); CALCIUM 9.1 mg/dL (8.5-10.1); CHLORIDE 107 mmol/L (98-107); CO2 26 mmol/L (21-32); CREATININE 0.8 mg/dL (0.55-1.3); GLUCOSE,RANDOM 93 mg/dL (74-106); MAGNESIUM 1.9 mg/dL (1.8-2.4); SGOT/AST 21 U/L (15-37); SGPT/ALT 33 U/L (13-61); SODIUM 140 mmol/L (136-145); TOT PROT 7.5 g/dl (6.4-8.2)
[2018-12-16 13:43] LABS: N-TERMINAL BNP 75.5 pg/ml (5-125)
[2018-12-16 14:38] VITALS: BP 132/89; PULSE 75; TEMP 98.2
--- NOTE | 2018-12-16 16:53 | EKG ---
Test Reason : Blood Pressure : / mmHG Vent. Rate : 082 BPM Atrial Rate : 082 BPM P-R Int : 174 ms QRS Dur : 096 ms QT Int : 356 ms P-R-T Axes : 063 -29 021 degrees QTc Int : 415 ms NORMAL SINUS RHYTHM NORMAL ECG WHEN COMPARED WITH ECG OF 10-JUN-2017 18:41, NO SIGNIFICANT CHANGE WAS FOUND Confirmed by RONEL BERNABE MD ([id number]) on 12/16/2018 4:53:22 PM Referred By: Confirmed By:RONEL BERNBAE MD
== END 2018-12-16 14:39 | disposition home or self-care (01) ==
LOC: JER 10:56
PROC: 3E0333Z Introduction of Anti-inflammatory into Peripheral Vein, Percutaneous Approach (ICD-10-PCS; principal; 2018-12-16)
DX: R07.9 Chest pain, unspecified (principal); I10 Essential (primary) hypertension; E11.9 Type 2 diabetes mellitus without complications; Z79.84 Long term (current) use of oral hypoglycemic drugs; J45.909 Unspecified asthma, uncomplicated; M12.9 Arthropathy, unspecified; F41.9 Anxiety disorder, unspecified
CPT/HCPCS: 36415; 71046-TC-FY; 80053; 83735; 83880; 84484; 85025; 93005; 93010; 99282-25

== ENCOUNTER 2020-12-27 08:46 | Emergency (ER) | payer OTHER ==
[2020-12-27 08:57] VITALS: BMI 39.8
[2020-12-27 10:16] LABS: BASO % 0.6 % (0-2.0); EOS % 5.2 % (0-4.5); HEMATOCRIT 37.8 % (32.4-45.2); HEMOGLOBIN 12.4 GM/dL (10.7-15.3); MCH 28.2 pg (25.7-33.7); MCHC 32.8 g/dl (32.0-36.0); MEAN PLT VOLUME 9.3 fl (7.5-11.1); MONO % 7.8 % (3.8-10.2); NEUT % 48.4 % (42.8-82.8); PLATELET COUNT 315 K/MM3 (134-434); RBC 4.39 M/mm3 (3.60-5.2); RDW 15.2 % (11.6-15.6); WHITE BLOOD COUNT 5.5 K/mm3 (4.0-10.0)
[2020-12-27 11:56] LABS: GLUCOSE,RANDOM 133 mg/dL (74-106)
[2020-12-27 12:07] VITALS: BP 121/71; PULSE 83; TEMP 98.4
[2020-12-27 12:08] LABS: ALBUMIN 3.5 g/dl (3.4-5.0); ALK PHOS 82 U/L (45-117); ANION GAP 5 MMOL/L (8-16); BILIRUBIN,TOTAL 0.8 mg/dL (0.2-1); BLOOD UREA NITROGEN 13.9 mg/dL (7-18); CALCIUM 9.4 mg/dL (8.5-10.1); CHLORIDE 104 mmol/L (98-107); CO2 31 mmol/L (21-32); CREATININE 0.9 mg/dL (0.55-1.3); POTASSIUM 4.2 mmol/L (3.5-5.1); SGOT/AST 21 U/L (15-37); SGPT/ALT 38 U/L (13-61); SODIUM 139 mmol/L (136-145); TOT PROT 7.4 g/dl (6.4-8.2)
== END 2020-12-27 13:38 | disposition home or self-care (01) ==
LOC: JER 08:46
DX: R00.2 Palpitations (principal)
CPT/HCPCS: 36415; 71046-TC-FY; 80053; 84484; 85025; 93005; 93010; 99285-25

== ENCOUNTER 2023-12-18 12:43 | Emergency (ER) | payer OTHER ==
[2023-12-18 12:48] VITALS: BP 139/78; PULSE 95; RESP 20; TEMP 98.6; BMI 36.8
[2023-12-18] MEDS ORDERED: IBUPROFEN 600 MG TABLET (FP) PO ONE (14:02)
[2023-12-18] MEDS: IBUPROFEN 600 MG TABLET (FP) PO ONE (14:16)
[2023-12-18 14:21] LABS: BASO % 0.6 % (0-2.0); EOS % 4.3 % (0-4.5); HEMATOCRIT 37.8 % (32.4-45.2); HEMOGLOBIN 12.7 GM/dL (10.7-15.3); LYMPH % 28.4 % (8-40); MCH 29.1 pg (25.7-33.7); MCHC 33.5 g/dl (32.0-36.0); MEAN CELL VOLUME 87.1 fl (80-96); MEAN PLT VOLUME 8.9 fl (7.5-11.1); MONO % 6.7 % (3.8-10.2); PLATELET COUNT 280 10^3/uL (134-434); RBC 4.34 M/mm3 (3.60-5.2); RDW 15.1 % (11.6-15.6); WHITE BLOOD COUNT 6.6 K/mm3 (4.0-10.0)
[2023-12-18 14:30] LABS: INR 1.06 (0.83-1.09); PROTHROMBIN TIME (PATIENT) 12.3 SEC (9.7-13.0)
[2023-12-18 14:33] LABS: ACTIVATED PTT 39.1 SECONDS (25.2-36.5)
[2023-12-18 14:51] LABS: POTASSIUM 3.5 mmol/L (3.5-5.1)
[2023-12-18 14:53] LABS: CALCIUM 8.4 mg/dL (8.5-10.1)
[2023-12-18 14:54] LABS: ALBUMIN 3.4 g/dl (3.4-5.0); BLOOD UREA NITROGEN 16.7 mg/dL (7-18)
[2023-12-18 14:59] LABS: BILIRUBIN,TOTAL 0.6 mg/dL (0.2-1); TOT PROT 7.6 g/dl (6.4-8.2)
== END 2023-12-18 15:51 | disposition home or self-care (01) ==
LOC: JER 12:43
DX: R07.89 Other chest pain (principal); Z20.822 Contact with and (suspected) exposure to COVID-19
CPT/HCPCS: 0241U-QW; 36415; 71046-TC-FY; 80053; 84484; 85025; 85610; 85730; 93005; 93010; 99285-25

== ENCOUNTER 2024-09-23 10:38 | Emergency (ER) | payer OTHER ==
[2024-09-23 10:53] VITALS: BP 136/78; PULSE 92; RESP 16; TEMP 97.5; BMI 37.3
[2024-09-23] MEDS ORDERED: ACETAMINOPHEN 325 MG TABLET (FP) ONE (12:09)
[2024-09-23] MEDS ORDERED: LIDOCAINE 4% PATCH TP ONE (12:09)
[2024-09-23] MEDS: LIDOCAINE 4% PATCH TP ONE (12:20)
[2024-09-23] MEDS: ACETAMINOPHEN 325 MG TABLET (FP) PO ONE (12:20)
[2024-09-23] MEDS ORDERED: KETOROLAC TROMETHAMINE 15 MG/ML VIAL IVPUSH ONE (12:28)
[2024-09-23 12:36] LABS: BASO % 0.6 % (0-2.0); EOS % 2.5 % (0-4.5); HEMATOCRIT 41.6 % (32.4-45.2); HEMOGLOBIN 13.4 GM/dL (10.7-15.3); LYMPH % 20.6 % (8-40); MCH 28.4 pg (25.7-33.7); MCHC 32.1 g/dl (32.0-36.0); MEAN CELL VOLUME 88.3 fl (80-96); MEAN PLT VOLUME 9.2 fl (7.5-11.1); MONO % 4.8 % (3.8-10.2); NEUT % 71.5 % (42.8-82.8); PLATELET COUNT 312 10^3/uL (134-434); RBC 4.71 M/mm3 (3.60-5.2); RDW 14.4 % (11.6-15.6); WHITE BLOOD COUNT 6.2 K/mm3 (4.0-10.0)
[2024-09-23] MEDS ORDERED: ONDANSETRON 4 MG/2 ML VIAL ONE (12:45)
[2024-09-23] MEDS: ONDANSETRON 4 MG/2 ML VIAL IVPUSH ONE (12:49)
[2024-09-23 13:04] LABS: POTASSIUM 3.9 mmol/L (3.5-5.1)
[2024-09-23 13:06] LABS: CALCIUM 9.8 mg/dL (8.5-10.1)
[2024-09-23 13:07] LABS: ALBUMIN 3.5 g/dl (3.4-5.0); BLOOD UREA NITROGEN 21.3 mg/dL (7-18); MAGNESIUM 2.2 mg/dL (1.8-2.4)
[2024-09-23 13:10] LABS: CREATININE 1.4 mg/dL (0.55-1.3)
[2024-09-23 13:11] LABS: BILIRUBIN,TOTAL 0.6 mg/dL (0.2-1)
[2024-09-23 13:12] LABS: TOT PROT 7.7 g/dl (6.4-8.2)
[2024-09-23] MEDS: SODIUM CHLORIDE 0.9% 500 ML INFUS.BAG IV ONE (13:50)
[2024-09-23] MEDS ORDERED: LIDOCAINE PATCH REMOVAL MC ONE (22:00)
== END 2024-09-23 15:15 | disposition home or self-care (01) ==
LOC: JER 10:38
PROC: 3E033GC Introduction of Other Therapeutic Substance into Peripheral Vein, Percutaneous Approach (ICD-10-PCS; principal; 2024-09-23)
DX: R07.89 Other chest pain (principal); N17.9 Acute kidney failure, unspecified; R11.0 Nausea
CPT/HCPCS: 36415; 71045-TC-FY; 80053; 83735; 84484; 85025; 93005; 93010; 99285-25

== ENCOUNTER 2025-02-08 15:15 | Emergency (ER) | payer OTHER ==
[2025-02-08 15:23] VITALS: BP 123/70; PULSE 92; RESP 20; TEMP 98.4; BMI 25.4
[2025-02-08] MEDS ORDERED: SODIUM CHLORIDE 0.9% 1000 ML INFUS.BAG IV ONE (16:35)
[2025-02-08] MEDS ORDERED: KETOROLAC TROMETHAMINE 15 MG/ML VIAL IVPUSH ONE (17:31)
== END 2025-02-08 19:04 | disposition left against medical advice (07) ==
LOC: JER 15:15
DX: R07.89 Other chest pain (principal); R00.2 Palpitations
CPT/HCPCS: 71046-TC-FY; 93005; 93010; 99284-25